=== PATIENT | male | born 1970 | race Caucasian/White ===

== ENCOUNTER 2023-06-15 22:39 | Emergency (ER) | payer MEDICARE, OTHER, SELFPAY ==
[2023-06-15 22:42] VITALS: BP 153/104
[2023-06-15 23:17] LABS: % Basophils 0.7 % (0-2); % Eosinophils 2.8 % (0-6); % Immature Granulocytes 0.3 % (0-0.5); % Monocytes 8.2 % (1.7-9.3); Absolute Eosinophils 0.2 10^3/uL (0-0.7); Absolute Lymphocytes 1.4 10^3/uL (1.2-3.4); Absolute Monocytes 0.5 10^3/uL (0.1-0.6); Absolute Neutrophils 3.6 10^3/uL (1.4-6.5); Hematocrit 41.3 % (39.0-52.0); Hemoglobin 14.7 g/dL (13.0-18.0); Mean Corp Hgb Conc. 35.6 g/dL (33.0-37.0); Mean Corpuscular Hgb 29.2 pg (27.0-31.0); Mean Corpuscular Volume 81.9 fL (80.0-94.0); Mean Platelet Volume 9.9 fL (7.4-10.4); Nucleated Red Blood Cells % 0 % (-); Platelet Count 180 10^3/uL (130-400); Red Blood Cell Count 5.04 10^6/uL (4.70-6.10); White Blood Cell Count 5.7 10^3/uL (4.8-10.8)
[2023-06-15 23:42] LABS: Troponin I < 0.012 ng/ml
[2023-06-15 23:48] LABS: ALT (SGPT) 24 U/L (0-50); AST (SGOT) 32 U/L (17-59); Albumin 4.3 g/dl (3.5-5.0); Alkaline Phosphatase 91 U/L (38-126); Blood Urea Nitrogen 16 mg/dl (9-20); Calcium 9.5 mg/dl (8.4-10.2); Carbon Dioxide 19 mmol/L (22-30); Chloride 106 mmol/L (98-107); Glucose 112 mg/dl (70-99); Potassium 4.1 mmol/L (3.5-5.1); Sodium 136 mmol/L (135-145); Total Protein 7.1 g/dl (6.3-8.2); eGFR > 60.00
[2023-06-16] VITALS: BP 130/90
[2023-06-16 01:00] VITALS: BP 124/83
--- NOTE | 2023-06-16 01:31 | ED.GENMED ---
History of Present Illness
General
Chief Complaint: Chest Problem
Source: patient
Exam Limitations: none
Time Seen by Provider: 06/15/23 23:10
Travel History
Have you had any contact with someone who has COVID-19?: No
Do you have any symptoms of coronavirus? Fever > 100 degrees, chills, cough, shortness of breath, sore throat, loss of taste or smell, muscle aches, or headache?: No
History of Present Illness
History of Present Illness:
53-year-old male with a history of coronary disease who presents with loss pectoralis spasms. The patient states that he has spasms in his pectoralis muscle in the past. He had an injury while in therapy in the past. However he does note that he
has a history of a failed bypass graft and was told by cardiology to be evaluated whenever he had concern. He works in politics and some night a [employer], felt warm and overheated. He felt like the need to massage his left chest wall. He then
took a break and coworkers became concerned. Patient states he does not feel in any way like he did when he had coronary symptoms. Patient states he also has not slept well last few days
Past History
Past History
ED Past Medical History: CAD
ED Past Surgical History: Cardiac and Other (Ophthalmological surgeries)
Social History
Tobacco: Non-smoker
Alcohol: Occasional
Drug: None
Phy Exam
Physical Exam
Physical Exam:
CONSTITUTIONAL Patient alert and oriented to person, place and time. Well-appearing. Vital signs reviewed.
HEAD atraumatic, normocephalic.
EYES eyelids normal to inspection, Pupils equally round and reactive to light, Extraocular muscles intact, Conjunctiva normal, Sclera normal.
NECK normal range of motion, Trachea midline, no jugular venous distention.
RESPIRATORY CHEST No respiratory distress noted, Chest expansion equal, Bilateral breath sounds clear. Mild left pectoralis tenderness
CARDIOVASCULAR regular rate and rhythm, Heart sounds normal.
BACK normal inspection, no obvious deformities
UPPER EXTREMITY range of motion normal, Motor strength normal, no cyanosis, no edema.
LOWER EXTREMITY range of motion normal, Motor strength normal, no cyanosis, no edema.
NEURO Speech normal, No focal motor deficits, Amalia coma scale 15, Memory normal, Cranial Nerves intact to screening exam.
SKIN skin warm, dry, and normal in color.
PSYCHIATRIC patient oriented to person place and time, Normal affect.
Course
Orders/Labs/Results
Orders:
Orders
06/15/23 22:42
ECG [Electrocardiogram (*1)] Urgent
Reason for Study: Chest Pain
EKG- Treatment ONCE
06/15/23 23:09
Complete Blood Count/With Diff Urgent
Comprehensive Metabolic Panel Urgent
Troponin I Urgent
06/16/23 01:40
CR Chest - 2 Views Urgent
Comment:
Reason For Exam: L cp
06/16/23 02:05
Troponin I Urgent
Abnormal Lab Results
06/15/23
23:09
Carbon Dioxide 19 L mmol/L
(22-30)
Glucose 112 H mg/dl
(70-99)
06/15/23 23:09
06/15/23 23:09
Vital Signs
Initial and Last Documented VS:
Initial Vital Signs
Temp Pulse Resp BP Pulse Ox
98.1 F 81 19 153/104 99
06/15/23 22:42 06/15/23 22:42 06/15/23 22:42 06/15/23 22:42 06/15/23 22:42
Last Documented Vital Signs
Temp Pulse Resp BP Pulse Ox
98.1 F 64 18 124/83 97
06/15/23 22:42 06/16/23 01:15 06/16/23 01:15 06/16/23 01:00 06/16/23 01:15
MDM/Problems Addressed
MDM/Problems Addressed:
chest pain
*Radiology
Radiology exam reviewed: radiology read reviewed
*Pulse Oximetry
Patient hypoxic: no
*EKG
Interpreted by ED Provider?: Yes
Interpretation: abnormal
Rate: normal
Rhythm: sinus
QRS Pattern: left vent hypertrophy
Ischemia: no ischemia
*Internet [employer]cer Interpretation
Rate: normal
Interpretation: normal
Rhythm: sinus
*Critical Care Note
Total Time (30-74mins, 75-104mins- exclusive of procedures): Not Applicable
Data Reviewed
Review of Other/Old Records Reveals: Records (prior cardiac cath reviewed. )
Source: patient
Prescriptions/Medications Considered But Not Given:
considered heparin but low suspicion for ACS
Patient Management
Escalation/DeEscalation of care consider admission/obs:
appears well. pt suspects this is his pectoralis issue and feels different than prior ACS. await repeat trop. if neg, ok for f/u
ED Attending Note
-
Portions of this chart may have been created with voice recognition software.� Occasional wrong word or��sound alike� substitutions may have occurred due to the inherent limitations of voice recognition software.
Discharge Plan
Departure
Patient Disposition: Home (Routine Discharge)
Date of Disposition: 06/16/23
Time of Disposition: 02:42
Patient with high blood pressure during this ER visit?: No
Discharge Problem:
Chest pain
Instructions: Chest Pain DCA Follow Up
Prescriptions:
No Action
clopidogrel 75 MG tablet
75 mg PO DAILY Qty: 30 3RF
aspirin 81 MG tablet,chewable
81 mg PO DAILY Qty: 30 3RF
carvedilol 3.125 MG tablet
3.125 mg PO BID Qty: 0 0RF
atorvastatin 80 MG tablet
80 mg PO HS
isosorbide mononitrate 30 MG tablet extended release 24 hr
30 mg PO HS
latanoprost 0.005 % Drops
1 drp LEFT EYE HS
niacin 500 mg Tablet
1,000 mg PO DAILY
nitroglycerin 0.4 mg Tablet, Sublingual
0.4 mg SUBLINGUAL Q5M PRN (Reason: chest pain)
pilocarpine HCl 2 % Drops
1 drp LEFT EYE BID
lisinopril 2.5 mg Tablet
2.5 mg PO HS
dorzolamide-timolol (PF) [Cosopt (PF)] 2-0.5 % Dropperette
1 drp LEFT EYE BID
Referrals:
Dre Manning CRNP [Family Provider] -
Activity Restrictions/Additional Instructions:
Please continue your current medications. Please avoid strenuous or exertional activity until cleared by cardiology. Please see cardiology in the next 48 hours for reevaluation. Return immediately for worsening pain, shortness breath, palpitations,
sweating, nausea, weakness of any kind, numbness, tingling or any other concerns.
Cardiology has been notified and a follow up appointment has been requested. Someone will call you on the next business day to schedule a follow up appointment.
Interventions
Interventions:
*Risk Screen - Suicide Last Done: 06/15/23 22:42
*General Assessment Last Done: 06/15/23 22:42
*Neglect/Abuse Screening Last Done: 06/15/23 22:42
ED- Fall Risk Assessment Last Done: 06/15/23 23:15
*ED COVID-19 Vaccine History Last Done: 06/15/23 22:42
ED- Cardiac Assessment Last Done: 06/15/23 23:14
ED- Pulmonary Assessment Last Done: 06/15/23 23:14
Discharge Date and Time
Print Language: KHMER
[2023-06-16 02:04] VITALS: BP 127/81
[2023-06-16 02:39] LABS: Troponin I < 0.012 ng/ml
[2023-06-16 03:00] VITALS: BP 120/92
== END 2023-06-16 03:10 | disposition home or self-care (01) ==
LOC: EMR 22:39
PROVIDERS: Emergency Medicine; EMERGENCY PHYSICIAN Emergency Medicine; FAMILY PHYSICIAN Registered Nurse
DX: R07.89 Other chest pain (principal); R25.2 Cramp and spasm
CPT/HCPCS: 99285; 71046; 80053; 84484; 85025; 93005

== ENCOUNTER → 2023-07-06 10:51 | Outpatient (REF) | payer MEDICARE, OTHER, SELFPAY ==
[2023-07-06 12:08] LABS: % Basophils 0.8 % (0-2); % Eosinophils 1.7 % (0-6); % Immature Granulocytes 0.2 % (0-0.5); % Lymphocytes 33.9 % (20.5-51.1); % Monocytes 10.4 % (1.7-9.3); Absolute Eosinophils 0.1 10^3/uL (0-0.7); Absolute Lymphocytes 1.6 10^3/uL (1.2-3.4); Absolute Monocytes 0.5 10^3/uL (0.1-0.6); Absolute Neutrophils 2.6 10^3/uL (1.4-6.5); Hematocrit 43.3 % (39.0-52.0); Hemoglobin 14.7 g/dL (13.0-18.0); Mean Corp Hgb Conc. 33.9 g/dL (33.0-37.0); Mean Corpuscular Volume 85.4 fL (80.0-94.0); Mean Platelet Volume 10.1 fL (7.4-10.4); Nucleated Red Blood Cells % 0 % (-); Platelet Count 182 10^3/uL (130-400); Red Blood Cell Count 5.07 10^6/uL (4.70-6.10); Red Cell Dist. Width 12.8 % (11.5-14.5); White Blood Cell Count 4.8 10^3/uL (4.8-10.8)
[2023-07-06 12:43] LABS: ALT (SGPT) 26 U/L (0-50); AST (SGOT) 30 U/L (17-59); Albumin 4.1 g/dl (3.5-5.0); Alkaline Phosphatase 91 U/L (38-126); Blood Urea Nitrogen 15 mg/dl (9-20); Calcium 9.7 mg/dl (8.4-10.2); Carbon Dioxide 25 mmol/L (22-30); Chloride 106 mmol/L (98-107); Glucose 97 mg/dl (70-99); HDL Cholesterol 54 mg/dl; LDL Cholesterol, Calculated 65 mg/dl; Potassium 4.9 mmol/L (3.5-5.1); Sodium 140 mmol/L (135-145); Total Cholesterol 138 mg/dl (50-199); Total Protein 6.9 g/dl (6.3-8.2); Triglyceride 99 mg/dl (10-149); Very Low Density Lipoprotein 19 mg/dl (0-30); eGFR > 60.00
[2023-07-06 12:48] LABS: Glycohemoglobin (HgbA1c) 6.2 % (4.0-5.6)
[2023-07-06 13:10] LABS: PSA, Total - Screen 5.55 ng/ml (0.0-4.0); TSH Reflex To Free T4 0.65 uIU/ml (0.47-4.68)
== END ==
LOC: REG 10:51
PROVIDERS: ATTENDING PHYSICIAN Registered Nurse
DX: Z00.00 Encounter for general adult medical examination without abnormal findings (principal); I11.9 Hypertensive heart disease without heart failure; I25.810 Atherosclerosis of coronary artery bypass graft(s) without angina pectoris; R73.03 Prediabetes; E78.5 Hyperlipidemia, unspecified; R79.89 Other specified abnormal findings of blood chemistry; R97.20 Elevated prostate specific antigen [PSA]
CPT/HCPCS: 36415; 80053; 80061; 83036; 84443; 85025; G0103

== ENCOUNTER → 2023-07-22 10:37 | Outpatient (REF) | payer MEDICARE, OTHER, SELFPAY ==
[2023-07-22 11:21] LABS: % Basophils 0.2 % (0-2); % Eosinophils 0.4 % (0-6); % Immature Granulocytes 0.5 % (0-0.5); % Lymphocytes 13.7 % (20.5-51.1); % Monocytes 8.8 % (1.7-9.3); % Neutrophils 76.4 % (42.2-75.2); Absolute Eosinophils 0.1 10^3/uL (0-0.7); Absolute Immature Granulocytes 0.1 10^3/uL (0-0.05); Absolute Lymphocytes 1.8 10^3/uL (1.2-3.4); Absolute Monocytes 1.1 10^3/uL (0.1-0.6); Absolute Neutrophils 9.7 10^3/uL (1.4-6.5); Hematocrit 43.7 % (39.0-52.0); Hemoglobin 14.4 g/dL (13.0-18.0); Mean Corpuscular Hgb 28.7 pg (27.0-31.0); Mean Corpuscular Volume 87.2 fL (80.0-94.0); Mean Platelet Volume 9.7 fL (7.4-10.4); Nucleated Red Blood Cells % 0 % (-); Platelet Count 260 10^3/uL (130-400); Red Blood Cell Count 5.01 10^6/uL (4.70-6.10); Red Cell Dist. Width 12.3 % (11.5-14.5); White Blood Cell Count 12.7 10^3/uL (4.8-10.8)
[2023-07-22 11:49] LABS: Blood Urea Nitrogen 17 mg/dl (9-20); Calcium 9.7 mg/dl (8.4-10.2); Carbon Dioxide 27 mmol/L (22-30); Chloride 101 mmol/L (98-107); Glucose 108 mg/dl (70-99); Sodium 135 mmol/L (135-145); eGFR > 60.00
== END ==
LOC: REG 10:37
PROVIDERS: ATTENDING PHYSICIAN Registered Nurse
DX: R39.9 Unspecified symptoms and signs involving the genitourinary system (principal)
CPT/HCPCS: 36415; 80048; 85025

== ENCOUNTER → 2023-12-08 10:17 | Outpatient (REF) | payer MEDICARE, OTHER, SELFPAY | LOC: RCS 10:17 | PROVIDERS: ATTENDING PHYSICIAN Internal Medicine Cardiovascular Disease; FAMILY PHYSICIAN Registered Nurse; REFERRING PHYSICIAN Internal Medicine | DX: I25.119 Atherosclerotic heart disease of native coronary artery with unspecified angina pectoris (principal); I25.5 Ischemic cardiomyopathy | CPT/HCPCS: 93306 ==

== ENCOUNTER → 2024-05-16 07:12 | Outpatient (REF) | payer MEDICARE, OTHER, SELFPAY ==
[2024-05-16 08:16] LABS: ALT (SGPT) 45 U/L (0-50); AST (SGOT) 36 U/L (17-59); Albumin 3.9 g/dl (3.5-5.0); Alkaline Phosphatase 85 U/L (38-126); Blood Urea Nitrogen 18 mg/dl (9-20); Calcium 9.3 mg/dl (8.4-10.2); Carbon Dioxide 28 mmol/L (22-30); Chloride 103 mmol/L (98-107); Glucose 106 mg/dl (70-99); HDL Cholesterol 52 mg/dl; LDL Cholesterol, Calculated 45 mg/dl; Potassium 4.2 mmol/L (3.5-5.1); Sodium 139 mmol/L (135-145); Total Bilirubin 1.4 mg/dl (0.2-1.3); Total Cholesterol 118 mg/dl (50-199); Total Protein 6.8 g/dl (6.3-8.2); Triglyceride 108 mg/dl (10-149); Very Low Density Lipoprotein 21 mg/dl (0-30); eGFR > 60.00
[2024-05-16 10:25] LABS: Glycohemoglobin (HgbA1c) 5.8 % (4.0-5.6)
[2024-05-17 17:30] LABS: Lipoprotein a (Lp a) 40 mg/dL (<=29)
[2024-05-17 17:51] LABS: PSA Total 5.7 ng/mL (0.0-4.0)
== END ==
LOC: REG 07:12
PROVIDERS: ATTENDING PHYSICIAN Internal Medicine Cardiovascular Disease; FAMILY PHYSICIAN Registered Nurse; REFERRING PHYSICIAN Specialist
DX: I25.119 Atherosclerotic heart disease of native coronary artery with unspecified angina pectoris (principal); E78.41 Elevated Lipoprotein(a); Z95.5 Presence of coronary angioplasty implant and graft; R97.20 Elevated prostate specific antigen [PSA]; I11.9 Hypertensive heart disease without heart failure; I25.810 Atherosclerosis of coronary artery bypass graft(s) without angina pectoris; R73.03 Prediabetes; E78.5 Hyperlipidemia, unspecified; Q13.1 Absence of iris; R79.89 Other specified abnormal findings of blood chemistry; I10 Essential (primary) hypertension; I25.5 Ischemic cardiomyopathy
CPT/HCPCS: 36415; 80053; 80061; 83036; 83695; 84153; 84154

== ENCOUNTER 2024-09-20 07:39 | Outpatient (RCR) | payer OTHER, MEDICARE, SELFPAY | END 2024-09-20 23:59 | disposition home or self-care (01) | LOC: RPT 07:39 | PROVIDERS: ATTENDING PHYSICIAN Orthopaedic Surgery Hand Surgery; FAMILY PHYSICIAN Registered Nurse | DX: M25.511 Pain in right shoulder (principal); Z98.890 Other specified postprocedural states; Z73.6 Limitation of activities due to disability | CPT/HCPCS: 97110; 97162 ==

== ENCOUNTER 2024-10-15 11:11 | Outpatient (RCR) | payer OTHER, MEDICARE, SELFPAY | END 2024-10-15 23:59 | disposition home or self-care (01) | LOC: RPT 11:11 | PROVIDERS: ATTENDING PHYSICIAN Orthopaedic Surgery Hand Surgery; FAMILY PHYSICIAN Registered Nurse | DX: M25.511 Pain in right shoulder (principal); M54.2 Cervicalgia; Z73.6 Limitation of activities due to disability; M62.81 Muscle weakness (generalized); G89.29 Other chronic pain | CPT/HCPCS: 97010; 97110; 97112; 97140 ==

== ENCOUNTER → 2024-10-15 13:38 | Outpatient (REF) | payer MEDICARE, OTHER, SELFPAY | LOC: RAD 13:38 | PROVIDERS: ATTENDING PHYSICIAN Orthopaedic Surgery Hand Surgery; FAMILY PHYSICIAN Registered Nurse | DX: M54.12 Radiculopathy, cervical region (principal) | CPT/HCPCS: 72040 ==

== ENCOUNTER → 2024-10-17 10:14 | Outpatient (REF) | payer MEDICARE, OTHER, SELFPAY | LOC: RAD 10:14 | PROVIDERS: ATTENDING PHYSICIAN Registered Nurse; REFERRING PHYSICIAN Internal Medicine Cardiovascular Disease | DX: M54.12 Radiculopathy, cervical region (principal); R20.2 Paresthesia of skin | CPT/HCPCS: 70496; 70498; Q9967 ==

== ENCOUNTER 2024-11-07 11:26 | Outpatient (RCR) | payer OTHER, MEDICARE, SELFPAY | END 2024-11-07 23:59 | disposition home or self-care (01) | LOC: RPT 11:26 | PROVIDERS: ATTENDING PHYSICIAN Orthopaedic Surgery Hand Surgery; FAMILY PHYSICIAN Registered Nurse | DX: M25.511 Pain in right shoulder (principal); M54.2 Cervicalgia; Z73.6 Limitation of activities due to disability; M62.81 Muscle weakness (generalized); G89.29 Other chronic pain | CPT/HCPCS: 97010; 97110 ==

== ENCOUNTER → 2024-12-11 06:51 | Outpatient (REF) | payer MEDICARE, OTHER, SELFPAY | LOC: MRI 3T 06:51 | PROVIDERS: ATTENDING PHYSICIAN Orthopaedic Surgery Hand Surgery; FAMILY PHYSICIAN Registered Nurse | DX: M54.12 Radiculopathy, cervical region (principal) | CPT/HCPCS: 72141 ==

== ENCOUNTER 2024-12-19 07:36 | Outpatient (RCR) | payer OTHER, MEDICARE, SELFPAY | END 2024-12-19 23:59 | disposition home or self-care (01) | LOC: RPT 07:36 | PROVIDERS: ATTENDING PHYSICIAN Orthopaedic Surgery Hand Surgery; FAMILY PHYSICIAN Registered Nurse | DX: M25.511 Pain in right shoulder (principal); M62.81 Muscle weakness (generalized); M54.2 Cervicalgia; Z73.6 Limitation of activities due to disability; G89.29 Other chronic pain; Z98.890 Other specified postprocedural states | CPT/HCPCS: 97110; 97112; 97140 ==

== ENCOUNTER 2025-01-09 06:53 | Outpatient (RCR) | payer OTHER, MEDICARE, SELFPAY | END 2025-01-14 23:59 | disposition home or self-care (01) | LOC: RPT 06:53 | PROVIDERS: ATTENDING PHYSICIAN Orthopaedic Surgery Hand Surgery; FAMILY PHYSICIAN Registered Nurse | DX: Z98.890 Other specified postprocedural states (principal); M25.511 Pain in right shoulder; M62.81 Muscle weakness (generalized); M54.2 Cervicalgia; G89.29 Other chronic pain; Z73.6 Limitation of activities due to disability | CPT/HCPCS: 97010; 97110; 97112; 97140 ==

== ENCOUNTER 2025-02-11 07:36 | Outpatient (RCR) | payer OTHER, MEDICARE, SELFPAY | END 2025-02-11 23:59 | disposition home or self-care (01) | LOC: RPT 07:36 | PROVIDERS: ATTENDING PHYSICIAN Orthopaedic Surgery Hand Surgery; FAMILY PHYSICIAN Registered Nurse | DX: M25.511 Pain in right shoulder (principal); M62.81 Muscle weakness (generalized); Z73.6 Limitation of activities due to disability; M54.2 Cervicalgia; G89.29 Other chronic pain; Z98.890 Other specified postprocedural states | CPT/HCPCS: 97010; 97110; 97112; 97140 ==